=== PATIENT | female | born 1995 | race Caucasian/White ===

== ENCOUNTER 2016-10-02 10:07 | Emergency (ER) | payer OTHER ==
[~2016-10-02] VITALS: Ht 172.7 cm; Wt 63.6 kg
[2016-10-02 10:09] VITALS: BP 120/89; TEMP 98.6
[2016-10-02 11:07] VITALS: PULSE 88
== END 2016-10-02 11:07 | disposition home or self-care (01) ==
LOC: COL.ER 10:07
DX: S86.811A Strain of other muscle(s) and tendon(s) at lower leg level, right leg, initial encounter (principal); X50.1XXA Overexertion from prolonged static or awkward postures, initial encounter
CPT/HCPCS: L1830